=== PATIENT | female | born 1985 | race Caucasian/White ===

== ENCOUNTER 2018-09-05 20:47 | Emergency (ER) | payer BC ==
[~2018-09-05] VITALS: Ht 165.1 cm; Wt 77.4 kg
--- NOTE | 2018-09-05 21:25 | NUR ---
PT ARRIVES TO ED WITH ABD PAIN, PT REPORTS SHE IS MAYBE 7 WEEKS . PT REPORTS SHE HAD SOME BROWN BLOOD LIKE DISCHARGE WITH CRAMPING AT HOME TODAY WITH SOME BACK PAIN. PT DOES NOT KNOW HER BLOOD TYPE AT THIS TIME. PT DENIES ANY TRUAMA. FIRST . PT RESTING BED WITH CALL LIGHT IN REACH. AWAITING FURTHER ORDERS.
[2018-09-05] MEDS ORDERED: DIPHENHYDRAMINE 50 MG/ML, 1ML IVPush ONE (21:30)
[2018-09-05] MEDS ORDERED: SODIUM CHLORIDE 0.9% 1,000ML IVBOLUS ONE (21:30)
[2018-09-05 22:11] LABS: MICROSCOPIC NOT IND
[2018-09-05 22:15] LABS: CULTURE INDICATED? NO
[2018-09-05 23:10] VITALS: BP 99/69
== END 2018-09-05 23:16 | disposition home or self-care (01) ==
LOC: ED 21:52
DX: O20.9 Hemorrhage in early pregnancy, unspecified (principal); Z3A.01 Less than 8 weeks gestation of pregnancy
CPT/HCPCS: 36415; 76801; 81003; 84702; 86901; 99284